=== PATIENT | female | born 1970 | race African-American/Black ===

== ENCOUNTER 2020-05-16 10:44 | Emergency (ER) | payer OTHER, SELFPAY ==
[~2020-05-16] VITALS: Ht 172.7 cm; Wt 99.8 kg
[2020-05-16 10:51] VITALS: BP 121/68
--- NOTE | 2020-05-16 11:39 | NUR ---
49 Y/O C/O SOB BREATHE, PATIENT STATES SHE IS COVID + AND HAS BEEN FEELING SOB THE PAST FEW DAYS. PATIENT HAS HX OF PE, AND WANTS TO MAKE SURE THAT SHE DOES NOT HAVE PE AT THIS TIME. NO ACUTE RESP DISTRESS NOTED. VSS
[2020-05-16 11:53] VITALS: BP 121/68
== END 2020-05-16 11:53 | disposition home or self-care (01) ==
LOC: MED 10:44
DX: U07.1 COVID-19 (principal); R06.02 Shortness of breath; R42 Dizziness and giddiness; Z98.890 Other specified postprocedural states
CPT/HCPCS: 99283

== ENCOUNTER 2020-05-24 10:24 | Emergency (ER) | payer OTHER, SELFPAY ==
[~2020-05-24] VITALS: Ht 175.3 cm; Wt 99.8 kg
[2020-05-24 10:36] VITALS: BP 157/81
[2020-05-24] MEDS ORDERED: ONDANSETRON 4 MG ODT PO ONE (11:45)
[2020-05-24] MEDS ORDERED: KETOROLAC 60 MG/2 ML VIAL IM ONE (11:45)
--- NOTE | 2020-05-24 12:04 | NUR ---
49 Y/O FEMALE C/O BACK PAIN, PT STATES PAIN ORIGINATES IN ABD AND RADIATES TO BACK X4 DAYS, 02/24. PT EXPERIENCING N/V. PT PREVIOUSLY TESTED + FOR COVID, AND RECENTLY TESTED - ABOUT ONE AND A HALF WEEK AGO. DENIES ANY RECENT TRAUMA OR INJURY TO BACK. PMH: PRE-DIABETIC, PROTEINURIA NKDA
[2020-05-24 12:56] LABS: BASOPHILS # (AUTO) 0.1 K/uL (0.00-0.22); EOSINOPHILS # (AUTO) 0.2 K/uL (0-0.4); EOSINOPHILS % (AUTO) 1.5 % (0.0-4.0); HEMATOCRIT 35.1 % (36-48); HEMOGLOBIN 11.4 g/dL (12.0-16.0); LYMPHOCYTES # (AUTO) 1.9 K/uL (2.5-16.5); MEAN CORPUSCULAR HEMOGLOBIN 27 pg (27-31); MEAN CORPUSCULAR HGB CONC 33 g/dL (33-37); MEAN CORPUSCULAR VOLUME 81.3 fL (80-94); MONOCYTES # (AUTO) 0.9 K/uL (0.8-1.0); NEUTROPHILS # (AUTO) 9.5 K/uL (1.8-7.7); NEUTROPHILS % (AUTO) 75.5 % (42.2-75.2); PLATELET COUNT (AUTO) 214 K/uL (140-450); RED BLOOD CELL COUNT(AUTO) 4.31 MIL/uL (4.20-5.40); RED CELL DISTRIBUTION WIDTH 13.6 % (11.6-13.7); WHITE BLOOD COUNT (AUTO) 12.6 K/uL (4.8-10.8)
[2020-05-24 13:25] LABS: PROTHROMBIN TIME 10.4 secs (10.8-13.4)
[2020-05-24 14:10] LABS: ALBUMIN 3.8 g/dL (3.4-5.0); ANION GAP 11.1 (8-16); CARBON DIOXIDE 28.2 mmol/L (21-32); CREATININE 0.8 mg/dL (0.6-1.3); POTASSIUM 4.3 mmol/L (3.5-5.1); TOTAL BILIRUBIN 0.5 mg/dL (0.0-1.0)
[2020-05-24 15:18] VITALS: BP 157/81
--- NOTE | 2020-05-24 15:18 | NUR ---
Patient discharged with v/s stable. Written and verbal after care instructions given and explained. Patient alert, oriented and verbalized understanding of instructions. Ambulatory with steady gait. All questions addressed prior to discharge. ID band removed. Patient advised to follow up with PMD. Rx of ROBAXIN, TRAMADOL given. Patient educated on indication of medication including possible reaction and side effects. Opportunity to ask questions provided and answered.
== END 2020-05-24 15:18 | disposition home or self-care (01) ==
LOC: MED 10:24
DX: M54.5 Low back pain (principal); R03.0 Elevated blood-pressure reading, without diagnosis of hypertension; Z98.890 Other specified postprocedural states
CPT/HCPCS: 36415; 71045; 72100; 80053; 85025; 85610; 85730; 96372; 99284; J1885; Q0162

== ENCOUNTER 2020-05-26 11:27 | Inpatient (IN) | payer OTHER, SELFPAY ==
[~2020-05-26] VITALS: Ht 175.3 cm; Wt 120.2 kg
[2020-05-26 11:55] VITALS: BP 117/60
--- NOTE | 2020-05-26 12:02 | NUR ---
49 YO F BIB SELF C/O ABDOMINAL PAIN X 3 DAYS. 10/10 UPON STANDING, 5/10 WHEN SITTING. PT WAS SEEN IN ER 3 DAYS AGO FOR SAME SYMPTOMS- ALL RESULTS CAME BACK NORMAL. IN ED, VSS. ABDOMEN SOFT, TENDER. NO ACTIVE VOMITING AT THIS TIME. ERMD MADE AWARE OF PT STATUS. PMH: PRE-DM, HLD NKA
[2020-05-26 12:51] LABS: BASOPHILS # (AUTO) 0.1 K/uL (0.00-0.22); BASOPHILS % (AUTO) 1.2 % (0.0-2.0); EOSINOPHILS # (AUTO) 0.1 K/uL (0-0.4); EOSINOPHILS % (AUTO) 0.8 % (0.0-4.0); HEMATOCRIT 33.1 % (36-48); HEMOGLOBIN 10.9 g/dL (12.0-16.0); LYMPHOCYTES # (AUTO) 1.3 K/uL (2.5-16.5); LYMPHOCYTES % (AUTO) 10.4 % (20.5-51.1); MEAN CORPUSCULAR HEMOGLOBIN 27 pg (27-31); MEAN CORPUSCULAR HGB CONC 33 g/dL (33-37); MEAN CORPUSCULAR VOLUME 81.2 fL (80-94); MONOCYTES # (AUTO) 0.9 K/uL (0.8-1.0); MONOCYTES % (AUTO) 7.3 % (1.7-9.3); NEUTROPHILS % (AUTO) 80.3 % (42.2-75.2); PLATELET COUNT (AUTO) 157 K/uL (140-450); RED BLOOD CELL COUNT(AUTO) 4.08 MIL/uL (4.20-5.40); RED CELL DISTRIBUTION WIDTH 14.1 % (11.6-13.7); WHITE BLOOD COUNT (AUTO) 12.5 K/uL (4.8-10.8)
[2020-05-26 13:10] LABS: PROTHROMBIN TIME 9.7 secs (10.8-13.4)
[2020-05-26 13:14] LABS: ALBUMIN 3.5 g/dL (3.4-5.0); ANION GAP 13.6 (8-16); CARBON DIOXIDE 26.5 mmol/L (21-32); CREATININE 0.8 mg/dL (0.6-1.3); POTASSIUM 4.1 mmol/L (3.5-5.1); TOTAL BILIRUBIN 0.5 mg/dL (0.0-1.0)
[2020-05-26] MEDS ORDERED: MORPHINE SULFATE 2 MG/ML SYR IVP ONE ×3 (13:45→22:40)
[2020-05-26] MEDS ORDERED: ONDANSETRON 4 MG/2 ML VIAL IVP ONE (13:55)
[2020-05-26] MEDS ORDERED: MORPHINE SULFATE 2 MG/ML SYR ONE ×2 (15:32→17:45)
[2020-05-26] MEDS ORDERED: ONDANSETRON 4 MG/2 ML VIAL ONE ×2 (15:32→17:45)
--- NOTE | 2020-05-26 20:28 | NUR ---
PREVIOUS IV TO RIGHT UPPER ARM HAD TO BE D/C'ED, UNABLE TO FLUSH IV LINE. STACY RN ATTEMPTING TO START NEW IV
[2020-05-26] MEDS ORDERED: METOCLOPRAMIDE 10 MG/2 ML INJ VIAL IVP ONE (20:50)
--- NOTE | 2020-05-26 21:34 | NUR ---
Dr. Patel at bedside for procedure
--- NOTE | 2020-05-26 21:53 | NUR ---
PT TO CT SCAN VIA [facility]
[2020-05-26] MEDS ORDERED: NACL 0.9% 500 ML IV ONE (21:55)
--- NOTE | 2020-05-26 22:15 | NUR ---
PT RETURN FROM CT
--- NOTE | 2020-05-26 22:18 | NUR ---
PT RETURNED FROM CT AND ASKING FOR MORE PAIN MEDS. HER PAIN WENT BACK UP TO 9 AFTER HAVING TO MOVED FROM BED TO BED IN CT. WILL NOTIFY
--- NOTE | 2020-05-26 22:43 | NUR ---
PT C/O INCREASED PAIN DUE TO HAVING TO MOVE FROM GURNEY TO BED IN CT, REQUESTING MORE PAIN MED.
[2020-05-27] MEDS ORDERED: NACL 0.9% 1,000 ML IV ONE (00:20)
[2020-05-27] MEDS ORDERED: VANCOMYCIN 1GM/DEXT 5% PREMIX 200 ML IV ONE (00:20)
[2020-05-27] MEDS ORDERED: CEFEPIME 1,000 MG in DEXTROSE 5% 50 ML IV ONE (00:20)
[2020-05-27] MEDS ORDERED: VANCOMYCIN PER PHARMACY MC PRN (00:20)
[2020-05-27] MEDS ORDERED: DEXTROSE 5% 1,000 ML IV SCH (00:40)
[2020-05-27] MEDS ORDERED: VANCOMYCIN 1,000 MG VIAL ONE (01:38)
[2020-05-27] MEDS ORDERED: CEFEPIME 1,000 MG VIAL ONE ×3 (01:38→20:14)
--- NOTE | 2020-05-27 02:36 | NUR ---
ED swab collected .
--- NOTE | 2020-05-27 03:15 | NUR ---
pt ambulated to restroom with cane. no complications.
--- NOTE | 2020-05-27 04:10 | NUR ---
pt in bed now asleep. HOB elevated. bed lowest and locked. symmetrical chest rise and fall. no further needs at this time. IV sites patent and flushable.
[2020-05-27] MEDS ORDERED: METO25TA PO (04:56)
[2020-05-27] MEDS ORDERED: LISI5TAB18 PO (04:56)
[2020-05-27] MEDS ORDERED: SIMV20TA1 PO (04:56)
--- NOTE | 2020-05-27 08:53 | NUR ---
PT SITTING UP EATING BREAKFAST.
--- NOTE | 2020-05-27 09:15 | NUR ---
LAB AT BEDSIDE.
[2020-05-27] MEDS: MORPHINE SULFATE 2 MG/ML SYR IVP PRN ×2 (09:22→14:55)
[2020-05-27 10:25] LABS: BASOPHILS # (AUTO) 0.1 K/uL (0.00-0.22); BASOPHILS % (AUTO) 0.5 % (0.0-2.0); EOSINOPHILS % (AUTO) 0.3 % (0.0-4.0); HEMOGLOBIN 10.5 g/dL (12.0-16.0); LYMPHOCYTES # (AUTO) 1.5 K/uL (2.5-16.5); LYMPHOCYTES % (AUTO) 10.8 % (20.5-51.1); MEAN CORPUSCULAR HEMOGLOBIN 27 pg (27-31); MEAN CORPUSCULAR HGB CONC 33 g/dL (33-37); MEAN CORPUSCULAR VOLUME 81.4 fL (80-94); MONOCYTES # (AUTO) 1.1 K/uL (0.8-1.0); MONOCYTES % (AUTO) 8.2 % (1.7-9.3); NEUTROPHILS # (AUTO) 11.2 K/uL (1.8-7.7); NEUTROPHILS % (AUTO) 80.2 % (42.2-75.2); PLATELET COUNT (AUTO) 146 K/uL (140-450); RED BLOOD CELL COUNT(AUTO) 3.94 MIL/uL (4.20-5.40)
[2020-05-27 10:58] LABS: ALBUMIN 3.2 g/dL (3.4-5.0); ANION GAP 14.1 (8-16); CARBON DIOXIDE 25.8 mmol/L (21-32); CREATININE 0.8 mg/dL (0.6-1.3); POTASSIUM 3.9 mmol/L (3.5-5.1); TOTAL BILIRUBIN 0.5 mg/dL (0.0-1.0)
--- NOTE | 2020-05-27 11:07 | NUR ---
PATIENT HAS BEEN SCREENED AND CATEGORIZED LOW NUTRITION RISK. PATIENT WILL BE SEEN WITHIN 7 DAYS OF ADMISSION. 06/03/20 IMELDA DIAZ MBA, RD
--- NOTE | 2020-05-27 11:50 | NUR ---
SPOKE TO MOMROXANNA REGARDING PT UPDATE WITH PT'S PERMISSION.
[2020-05-27] MEDS: VANCOMYCIN 1,500 MG in DEXTROSE 5% 500 ML IV SCH (12:17)
--- NOTE | 2020-05-27 14:46 | NUR ---
Patient will be admitted to care of DR. SAMANIEGO. Admited to TELE. Will go to room 108B. Belongings list completed. Report to ITZEL KING .
--- NOTE | 2020-05-27 15:30 | NUR ---
RECEIVED PATIENT FROM ER UNDER THE CARE OF DR SAMANIEGO WITH A DX OF RETROPERITONEAL HEMORRHAGE . PT AWAKE AL;ERT AND ORIENTED X 4 COMPLAIN OF ABD PAIN 9/10 MEDICATED WITH MORPHINE 2 MG IVP. IV SITE LEFT HAND G 22 INTACT AND PATENT IV VANCOMYCIN IS INFUSING. ANOTHER IV G 19 ON LEFT JUGULAR VEIN. UNIT ORIENTATION GIVEN DISCUSSED PLAN OF CARE VITALS STABLE WILL CONTINUE TO MONITOR.
[2020-05-27 15:45] VITALS: BP 121/65
[2020-05-27] MEDS: NACL 0.9% 1,000 ML IV SCH (17:51)
--- NOTE | 2020-05-27 17:57 | NUR ---
DR SAMANIEGO VISITED PATIENT DISCUSSED THE PLAN OF CARE STABLE CONDITION AT THIS TIME
--- NOTE | 2020-05-27 18:29 | NUR ---
DR SAMANIEGO DISCUSSED WITH THE PAPER WOOD CUTTER AND HOLD THE CT ABD/PELVIS FOR NOW . PT AGREED WILL CONTINUE TO MONITOR.
[2020-05-27] MEDS ORDERED: ONDANSETRON 4 MG/2 ML VIAL IVP PRN (18:30)
[2020-05-27] MEDS ORDERED: MORPHINE SULFATE 4 MG/ML SYR ONE (18:57)
--- NOTE | 2020-05-27 19:38 | NUR ---
C/O ABDOMINAL PAIN MEDICATED WITH MORPHINE 3MG IVP. URINE SENT TO LAB FOR CULTURE . SAFETY MAINTAINED CALL LIGHT IN REACH. ENDORSE THE CARE TO SERVER SERVICE ASSISTANT NURSE.
--- NOTE | 2020-05-27 19:40 | NUR ---
RECEIVED REPORT FROM DAY ITZEL KING. PT AOX4 ON ROOM AIR, NO S/S RESPIRATORY DISTRESS. WILL MEDICATE PRN FOR ABD PAIN. IV SITE L HAND 22G PATENT INTACT, INFUSING IVF ORDERED. SAFETY MEASURES IN PLACE. CALL LIGHT WITHIN REACH. WILL CONTINUE TO MONITOR
[2020-05-27 19:58] LABS: APPEARANCE,URINE CLEAR (CLEAR); BILIRUBIN,URINE NEGATIVE (NEGATIVE); BLOOD, URINE NEGATIVE (NEGATIVE); COLOR,URINE YELLOW (YELLOW); LEUKOCYTE ESTERASE ,URINE NEGATIVE (NEGATIVE); NITRITE, URINE NEGATIVE (NEGATIVE); UGLUCOSE NEGATIVE (NEGATIVE)
[2020-05-27 20:00] VITALS: BP 122/80
[2020-05-27] MEDS: CEFEPIME 2,000 MG in DEXTROSE 5% 100 ML IV SCH (20:22)
--- NOTE | 2020-05-27 20:25 | NUR ---
ADMINISTERED SCHEDULED MEDICATION. TOLERATED WELL. WILL CONTINUE TO MONITOR
[2020-05-27] MEDS: DOCUSATE SODIUM 250 MG GELCAP PO SCH (20:27)
[2020-05-27] MEDS: HYDROcodone/APAP 7.5/325 MG 1 TAB PO PRN (23:08)
--- NOTE | 2020-05-27 23:08 | NUR ---
PRN NORCO GIVEN FOR C/O ABD PAIN, TOLERATED WELL. WILL CONTINUE TO MONITOR
[2020-05-28] VITALS: BP 100/45
[2020-05-28] MEDS: VANCOMYCIN 1,500 MG in DEXTROSE 5% 500 ML IV SCH (00:06)
[2020-05-28] MEDS: MORPHINE SULFATE 2 MG/ML SYR IVP PRN ×2 (03:22→23:16)
[2020-05-28 04:00] VITALS: BP 121/58
[2020-05-28] MEDS: HYDROcodone/APAP 7.5/325 MG 1 TAB PO PRN ×3 (05:08→18:42)
[2020-05-28] MEDS: NACL 0.9% 1,000 ML IV SCH ×2 (05:55→19:05)
--- NOTE | 2020-05-28 07:40 | NUR ---
ENDORSED PT TO DAY RN FOR CONTINUITY OF CARE. PT IS IN STABLE CONDITION
[2020-05-28 08:00] VITALS: BP 110/42
[2020-05-28 08:06] LABS: BASOPHILS % (AUTO) 0.2 % (0.0-2.0); EOSINOPHILS # (AUTO) 0.1 K/uL (0-0.4); EOSINOPHILS % (AUTO) 0.9 % (0.0-4.0); HEMATOCRIT 28.9 % (36-48); HEMOGLOBIN 9.5 g/dL (12.0-16.0); LYMPHOCYTES % (AUTO) 8.3 % (20.5-51.1); MEAN CORPUSCULAR HEMOGLOBIN 27 pg (27-31); MEAN CORPUSCULAR HGB CONC 33 g/dL (33-37); MEAN CORPUSCULAR VOLUME 80.6 fL (80-94); MONOCYTES # (AUTO) 1.2 K/uL (0.8-1.0); NEUTROPHILS # (AUTO) 9.8 K/uL (1.8-7.7); NEUTROPHILS % (AUTO) 80.6 % (42.2-75.2); PLATELET COUNT (AUTO) 133 K/uL (140-450); RED BLOOD CELL COUNT(AUTO) 3.58 MIL/uL (4.20-5.40); RED CELL DISTRIBUTION WIDTH 13.9 % (11.6-13.7); WHITE BLOOD COUNT (AUTO) 12.2 K/uL (4.8-10.8)
[2020-05-28 08:14] LABS: ANION GAP 13.5 (8-16); CARBON DIOXIDE 24.3 mmol/L (21-32); CREATININE 0.8 mg/dL (0.6-1.3); POTASSIUM 3.8 mmol/L (3.5-5.1)
[2020-05-28] MEDS: ENOXAPARIN 40 MG/0.4 ML SYR SUBQ SCH (09:00)
[2020-05-28] MEDS: DOCUSATE SODIUM 250 MG GELCAP PO SCH ×2 (09:57→21:00)
[2020-05-28] MEDS: CEFEPIME 2,000 MG in DEXTROSE 5% 100 ML IV SCH ×2 (09:58→23:27)
--- NOTE | 2020-05-28 10:14 | NUR ---
ADMINISTERED PRESCRIBED MEDS PER MD ORDER. HELD LOVENOX SUBQ DUE TO DX; PATIENT TOLERATED WELL. MEDICATION EDUCATION PROVIDED. PATIENT VERBALIZED UNDERSTANDING. SAFETY MEASURES IN PLACE. WILL CONT TO MONITOR.
--- NOTE | 2020-05-28 11:58 | NUR ---
ADMINISTERED PRN NORCO FOR 5/10 PAIN. PATIENT TOLERATED MEDICATION WELL. MEDICATION EDUCATION PROVIDED. PATIENT VERBALIZED UNDERSTANDING. SAFETY MEASURES IN PLACE. WILL CONT TO MONITOR.
[2020-05-28 12:00] VITALS: BP 127/60
--- NOTE | 2020-05-28 13:13 | NUR ---
STANDBY ASSIST TO BATHROOM. PATIENT USES CANE FOR AMBULATORY ASSISTANCE. SAFETY MEASURES IN PLACE. WILL CONT TO MONITOR.
[2020-05-28] MEDS ORDERED: VANCOMYCIN PER PHARMACY MC PRN (14:25)
[2020-05-28 16:00] VITALS: BP 108/54
[2020-05-28] MEDS: VANCOMYCIN HCL 1.25 GM in DEXTROSE 5% 250 ML IV SCH (16:00)
--- NOTE | 2020-05-28 19:03 | NUR ---
ADMINISTERED PRN NORCO FOR PAIN. UNABLE TO ADMINISTER PRESCRIBED VANCO PATIENT IV IS INFILTRATED.
--- NOTE | 2020-05-28 19:20 | NUR ---
RECEIVED REPORT FROM DONAVAN PARK. PT AOX4 RESTING BED ON ROOM AIR, NO S/S RESPI. DISTRESS, WILL MEDICATE PRN FOR PAIN. NO IV SITE. SAFETY MEASURES IN PLACE. CALL LIGHT WITHIN REACH. WILL CONTINUE TO MONITOR
[2020-05-28 20:00] VITALS: BP 118/57
--- NOTE | 2020-05-28 23:20 | NUR ---
NEW IV PLACED TO L IJ 18G PATENT INTACT. PRN MORPHINE GIVEN FOR C/O SEVERE ABD PAIN, TOLERATED WELL. WILL CONTINUE TO MONITOR
--- NOTE | 2020-05-28 23:30 | NUR ---
ADMINISTERED SCHEDULED MEDS, TOLERATED WELL. WILL CONTINUE TO MONITOR
[2020-05-29] VITALS: BP 119/75
[2020-05-29] MEDS: HYDROcodone/APAP 7.5/325 MG 1 TAB PO PRN ×3 (01:06→16:31)
[2020-05-29 04:00] VITALS: BP 120/52
[2020-05-29] MEDS: NACL 0.9% 1,000 ML IV SCH (06:55)
--- NOTE | 2020-05-29 07:30 | NUR ---
RECEIVED PATIENT FROM NIGHT NURSE. PATIENT IN BED SLEEPING, NO NOTED ACUTE S/S DISTRESS. CONTINUE ON ROOM AIR. SAFETY MEASURES IN PLACE. CALL LIGHT WITHIN REACH. WILL CONTINUE TO MONITOR.
--- NOTE | 2020-05-29 07:30 | NUR ---
ENDORSED PT TO DAY RN FOR CONTINUITY OF CARE. PT IS IN STABLE CONDITION.
[2020-05-29 08:00] VITALS: BP 120/60
[2020-05-29] MEDS: VANCOMYCIN HCL 1.25 GM in DEXTROSE 5% 250 ML IV SCH ×3 (08:00)
[2020-05-29 08:39] LABS: BASOPHILS % (AUTO) 0.3 % (0.0-2.0); EOSINOPHILS # (AUTO) 0.1 K/uL (0-0.4); EOSINOPHILS % (AUTO) 0.4 % (0.0-4.0); HEMOGLOBIN 9.2 g/dL (12.0-16.0); LYMPHOCYTES # (AUTO) 1.3 K/uL (2.5-16.5); LYMPHOCYTES % (AUTO) 9.7 % (20.5-51.1); MEAN CORPUSCULAR HEMOGLOBIN 27 pg (27-31); MEAN CORPUSCULAR HGB CONC 33 g/dL (33-37); MONOCYTES # (AUTO) 1.3 K/uL (0.8-1.0); MONOCYTES % (AUTO) 9.8 % (1.7-9.3); NEUTROPHILS # (AUTO) 10.8 K/uL (1.8-7.7); NEUTROPHILS % (AUTO) 79.8 % (42.2-75.2); PLATELET COUNT (AUTO) 145 K/uL (140-450); RED BLOOD CELL COUNT(AUTO) 3.46 MIL/uL (4.20-5.40); RED CELL DISTRIBUTION WIDTH 13.9 % (11.6-13.7); WHITE BLOOD COUNT (AUTO) 13.6 K/uL (4.8-10.8)
[2020-05-29] MEDS: ENOXAPARIN 40 MG/0.4 ML SYR SUBQ SCH (08:59)
[2020-05-29] MEDS: CEFEPIME 2,000 MG in DEXTROSE 5% 100 ML IV SCH (09:00)
[2020-05-29] MEDS: DOCUSATE SODIUM 250 MG GELCAP PO SCH (09:00)
--- NOTE | 2020-05-29 09:00 | NUR ---
MORNING ROUTINE MEDICATIONS GIVEN. PATIENT TOLERATED WELL. NO IV ANTIBIOTIC GIVEN AT THIS TIME D/T PATIENT HAS NO IV ACCESS. DR PADILLA MADE AWARE. PATIENT MADE AWARE OF POTENTIAL PICC LINE INSERTION. PATIENT VERBALIZED UNDERSTANDING. PATIENT AWAKE AND ALERT. ABLE TO MAKE NEEDS KNOWN. CALL LIGHT WITHIN REACH. WILL CONTINUE TO MONITOR.
[2020-05-29 10:14] LABS: ANION GAP 14.6 (8-16); CARBON DIOXIDE 23.4 mmol/L (21-32); CREATININE 0.7 mg/dL (0.6-1.3)
[2020-05-29 10:28] LABS: MAGNESIUM 1.9 mg/dL (1.8-2.4)
[2020-05-29 12:00] VITALS: BP 133/79
--- NOTE | 2020-05-29 12:09 | NUR ---
RECEIVED ORDER TO INSERT MIDLINE FROM DR PADILLA IN HOUSE. ORDER CARRIED OUT. CALL MADE TO PICC NURSE. AWAITING FOR ETA. PATIENT VERBALIZED UNDERSTANDING AND SIGNED CONSENT.
[2020-05-29] MEDS ORDERED: HYDR-5122 PO (14:24)
[2020-05-29] MEDS ORDERED: AMOX-999 PO (14:24)
--- NOTE | 2020-05-29 14:40 | NUR ---
MIDLINE ORDER CANCELLED. PATIENT WILL BE DISCHARGED HOME TODAY. DR PADILLA AWARE
[2020-05-29 16:00] VITALS: BP 121/70
--- NOTE | 2020-05-29 16:38 | NUR ---
PATIENT IN BED AWAKE AND ALERT. NO NOTED ACUTE S/S DISTRESS. CALL LIGHT WITHIN REACH. WILL CONTINUE TO MONITOR.
--- NOTE | 2020-05-29 18:35 | NUR ---
PATIENT DISCHARGED HOME WITH . PATIENT LEFT WITH ALL PERSONAL BELONGINGS. DISCHARGE INSTRUCTIONS GIVEN. VERBALIZED UNDERSTANDING. PATIENT LEFT IN STABLE CONDITION.
== END 2020-05-29 18:55 | disposition home or self-care (01) | DRG 315 ==
LOC: MED 11:27 → MTU 05-27 00:49
PROVIDERS: ADMIT Hospitalist; ATTEND Hospitalist
DX: R58 Hemorrhage, not elsewhere classified (principal); R65.10 Systemic inflammatory response syndrome (SIRS) of non-infectious origin without acute organ dysfunction; J98.11 Atelectasis; E87.1 Hypo-osmolality and hyponatremia; E78.5 Hyperlipidemia, unspecified; M54.9 Dorsalgia, unspecified; R73.03 Prediabetes; D63.8 Anemia in other chronic diseases classified elsewhere; Z20.822 Contact with and (suspected) exposure to COVID-19; Z86.711 Personal history of pulmonary embolism; Z90.710 Acquired absence of both cervix and uterus; Z83.3 Family history of diabetes mellitus; Z80.3 Family history of malignant neoplasm of breast; Z82.49 Family history of ischemic heart disease and other diseases of the circulatory system
CPT/HCPCS: 36415; 71275; 80048; 80053; 80202; 81003; 83605; 83690; 83735; 84100; 85025; 85610; 85730; 87040; 87081; 87086; 96361; 96374; 96375; 96376; 99285; J0692; J1650; J2270; J2405; J2765; J3370; J7030; J7060; Q9967